=== PATIENT | female | born 1945 | race Caucasian/White ===

== ENCOUNTER 2018-12-22 10:26 | Emergency (ER) | payer MEDICARE, OTHER, SELFPAY ==
[2018-12-22 10:27] VITALS: BP 166/96; PULSE 70; RESP 18; TEMP 36.3; O2SAT 99; BMI 37.8
--- NOTE | 2018-12-22 11:02 | RAD_ITS ---
STUDY: X-RAY - PELVIS AND RIGHT HIP REASON FOR EXAM: Female, 73 years old. Fall TECHNIQUE: 3 views of the pelvis and right hip. COMPARISON: None. FINDINGS: There is no fracture or dislocation in the pelvis or right hip. There are moderate degenerative changes in the right hip. RAD/HIP, UNI W/ Pelvis 2-3 Views IMPRESSION: No fracture or dislocation the pelvis or right hip. Moderate degenerative change. Electronically Signed: Pasquale Minor, at 11:54 EDT Tel , Service support ,
--- NOTE | 2018-12-22 11:02 | RAD_ITS ---
STUDY: X-RAY - LUMBAR SPINE REASON FOR EXAM: Female, 73 years old. Fall TECHNIQUE: 3 view(s) of the lumbar spine were obtained. COMPARISON: None FINDINGS: There is no evidence of fracture or dislocation in the lumbar spine. The vertebral body heights are well-maintained. There are mild multilevel degenerative changes with disc space narrowing, facet hypertrophy and small osteophytes. RAD/Lumbar Spine 2 or 3 Views IMPRESSION: No fracture or dislocation in the lumbar spine. Mild degenerative change. Electronically Signed: Pasquale Minor, at 11:51 EDT Tel , Service support ,
--- NOTE | 2018-12-22 12:24 | ED.DCSUM_ITS ---
- ER Visit Summary Date of Service: 12/22/18 Chief Complaint: Fall History of Present Illness: The patient is a 73 F who fell from a ladder yesterday while cleaning her windows. She states was a 4 foot ladder and she is on her way down when the ladder shifted and she fell landing on her right side. She states she initially had a headache that is completely resolved. She had no vision change, nausea, vomiting. She is a planing of pain to the right lower back and right hip area. She did note some improvement with ibuprofen this morning. Physical Examination: Blood pressure is 166/96, otherwise vitals normal. Patient sitting upright in bed no acute distress. Head and neck examination unremarkable. No C-spine tenderness noted. Heart is regular rate and rhythm. Lung sounds are clear. Abdomen is soft and nontender. Back examination was tenderness in the right lumbar paraspinal muscles. Is mild tenderness in the right posterior hip. She has full range of motion of the lower extremities. No ecchymosis or abrasions are noted. Test Results: L-spine and right hip/pelvis x-rays are obtained and reveal no fracture. Emergency Department Course and Treatment: Patient will continue to use ibuprofen or Tylenol. She will be written a short course of Stewart for breakthrough pain if needed. Treatment Plan: [] Disposition: Discharge Impression: 1. Fall with right hip contusion This note was generated with Smartaxi dictation software. It may contain incorrect words, spelling, and punctuation that were not noted in review of the chart prior to signing ED Disposition - Plan for ED Patient: Disposition: Home or Assisted Living Instructions: ED Mechanical Fall, ED Contusion Hip Prescriptions: Hydrocodone Bitart/Apap 5-325 [Stewart 5MG-325MG] 1 tablet PO Q6H PRN PRN 3 Days #10 tablet PRN Reason: Pain Referrals: Karen Shoemaker MD [Primary Care Provider] - 1 Week if not improving
[2018-12-22 12:37] VITALS: RESP 18
== END 2018-12-22 12:40 | disposition home or self-care (01) ==
PROVIDERS: Emergency Provider Emergency Medicine; Family Provider Internal Medicine; PCP Internal Medicine
DX: S70.01XA Contusion of right hip, initial encounter (principal); M54.5 Low back pain; W11.XXXA Fall on and from ladder, initial encounter; Y93.E9 Activity, other interior property and clothing maintenance; Y92.9 Unspecified place or not applicable; Y99.9 Unspecified external cause status; I10 Essential (primary) hypertension
CPT/HCPCS: 72100; 73502; 99283

== ENCOUNTER 2020-09-14 17:39 | Outpatient (RCR) | payer MEDICARE, SELFPAY | END 2020-09-14 23:59 | LOC: IMMUN 17:39 | PROVIDERS: PCP Internal Medicine; Visit Provider Family Medicine | DX: Z23 Encounter for immunization (principal) | CPT/HCPCS: 0011A ==

== ENCOUNTER 2021-08-16 06:57 | Day surgery (SDC) | payer MEDICARE, SELFPAY ==
--- NOTE | 2021-08-16 07:28 | H&P.OPEN ---
HPI - General HPI Narrative MICKEY POON, is a 75 F who presents [facility] Medical History (Updated 08/13/21 @ 12:38 by Yesenia Bean) CPAP (continuous positive airway pressure) dependence Diabetes Easy bruising Excessive bleeding High cholesterol History of ingrown nail History of steroid therapy Hypertension Post-menopausal Sleep apnea Wears glasses Home Medications Lactobacillus acidophilus [Probiotic] 10,000 mmu cells PO DAILY 08/13/21 [History Last Taken Unknown] aspirin 81 mg PO DAILY 08/13/21 [History Last Taken Unknown] atenolol 25 mg PO BID 08/13/21 [History Last Taken Unknown] biotin 1 mg PO DAILY 08/13/21 [History Last Taken Unknown] calcium carbonate [Calcium 500] 500 mg PO DAILY 08/13/21 [History Last Taken Unknown] cholecalciferol (vitamin D3) [Vitamin D3] 25 mcg PO DAILY 08/13/21 [History Last Taken Unknown] elderberry fruit [Elderberry] 200 mg PO DAILY 08/13/21 [History Last Taken Unknown] milfnbaf-oqtsz-rqc8-C-arcadio-bor [Tpfmqjbsktz-Afezl-WHA Complex] 1 tab PO DAILY 08/13/21 [History Last Taken Unknown] hydrochlorothiazide 50 mg PO DAILY 08/13/21 [History Last Taken Unknown] metformin 500 mg PO BID 08/13/21 [History Last Taken Unknown] nortriptyline 20 mg PO QHS 08/13/21 [History Last Taken Unknown] oxybutynin chloride 5 mg PO DAILY 08/13/21 [History Last Taken Unknown] rosuvastatin 2.5 mg PO QHS 08/13/21 [History Last Taken Unknown] turmeric 400 mg PO DAILY 08/13/21 [History Last Taken Unknown] vitamin B complex 1 cap PO DAILY 08/13/21 [History Last Taken Unknown] zinc 50 mg PO DAILY 08/13/21 [History Last Taken Unknown] Allergy/AdvReac Type Severity Reaction Status Date / Time amoxicillin [From Augmentin] Allergy Rash Verified 08/13/21 12:25 clavulanic acid Allergy Rash Verified 08/13/21 12:25 [From Augmentin] ezetimibe [From Zetia] Allergy Other Verified 08/13/21 12:25 lisinopril Allergy Other Verified 08/13/21 12:25 Penicillins Allergy Hives Verified 08/13/21 12:22 pravastatin Allergy Other Verified 08/13/21 12:25 red yeast rice Allergy Other Verified 08/13/21 12:25 simvastatin [From Zocor] Allergy Other Verified 08/13/21 12:25 Surgical History (Updated 08/13/21 @ 12:38 by Yesenia Bean) History of carpal tunnel release of both wrists Hx laparoscopic cholecystectomy Hx of arthroscopic knee surgery Hx of colonoscopy Hx of dilation and curettage Hx of hysterectomy Hx of lumpectomy Hx of vein stripping Social History Smoking Status: Never smoker Past Medical/Surgical History Planned Operation Planned Operative Procedure/s: COLON Previous Hospitalizations/Surgeries HX Hospitalizations: No Any Problems With Anesthesia: No You/Your Family Experience Fever (Hyperthermia) With Anes: No Cholinesterase deficiency: No Cardiovascular Hx of Irregular Heartbeat and/or Afib: No Hx Heart Attack: No Hx Congestive Heart Failure: No Hx Hypertension: Yes (CONTROLLED ON MED) Hx Pacemaker: No Respiratory Hx Chronic Obstructive Pulmonary Disease (COPD): No Hx Asthma: No Hx Emphysema: No Hx Sleep Apnea: Yes CPAP: Yes BIPAP: No Hx Respiratory Tract Infection/Cold (presently): No Result (for STOP score): Positive Smoking Status: Never smoker Gastrointestinal Hx Gastroesophageal Reflux: No Hx Ulcer: No Neurological Hx Seizures: No Hx Head/Neck Injury: No Hx Headaches: Yes Hx Back Injury/Pain: No Does patient have nerve stimulator: No Allergies amoxicillin [From Augmentin] Allergy (Verified 08/13/21 12:25) Rash clavulanic acid [From Augmentin] Allergy (Verified 08/13/21 12:25) Rash ezetimibe [From Zetia] Allergy (Verified 08/13/21 12:25) Other MUSCLE ACHES lisinopril Allergy (Verified 08/13/21 12:25) Other COUGH Penicillins Allergy (Verified 08/13/21 12:22) Hives pravastatin Allergy (Verified 08/13/21 12:25) Other red yeast rice Allergy (Verified 08/13/21 12:25) Other simvastatin [From Zocor] Allergy (Verified 08/13/21 12:25) Other MUSCLE ACHES Discharge Is Pt Admitted From a Retirement, or a Usp: No After D/C, Where Do you Plan to Go: Return Home Surgery Risks - Colonoscopy Risks Include but are not Limited To: Risks include but are not limited to: Bleeding, perforation requiring further surgery, inability to complete colonoscopy requiring barium enema.
--- NOTE | 2021-08-16 07:31 | H&P.OPEN ---
HPI - General HPI Narrative MICKEY POON, is a 75 F who presents for screening colonoscopy. Patient's last colonoscopy was by Dr. Villela in May 2016 he did find 1 polyp per patient which was benign. Patient denies any family history of colon cancer. Patient's bowel movements daily denies any blood?does admit to hemorrhoids. Patient denies any chronic abdominal pain/nausea/vomiting/reflux. [facility] Medical History (Updated 08/16/21 @ 07:[address] Ashley Riddle MD) CPAP (continuous positive airway pressure) dependence Diabetes Easy bruising Excessive bleeding High cholesterol History of ingrown nail History of steroid therapy Hypertension Post-menopausal Sleep apnea Wears glasses Home Medications Lactobacillus acidophilus [Probiotic] 10,000 mmu cells PO DAILY 08/13/21 [History Last Taken Unknown] aspirin 81 mg PO DAILY 08/13/21 [History Last Taken Unknown] atenolol 25 mg PO BID 08/13/21 [History Last Taken Unknown] biotin 1 mg PO DAILY 08/13/21 [History Last Taken Unknown] calcium carbonate [Calcium 500] 500 mg PO DAILY 08/13/21 [History Last Taken Unknown] cholecalciferol (vitamin D3) [Vitamin D3] 25 mcg PO DAILY 08/13/21 [History Last Taken Unknown] elderberry fruit [Elderberry] 200 mg PO DAILY 08/13/21 [History Last Taken Unknown] ieyjemjs-jzzst-fte8-C-arcadio-bor [Jauovacxvsq-Dnuya-WSF Complex] 1 tab PO DAILY 08/13/21 [History Last Taken Unknown] hydrochlorothiazide 50 mg PO DAILY 08/13/21 [History Last Taken Unknown] metformin 500 mg PO BID 08/13/21 [History Last Taken Unknown] nortriptyline 20 mg PO QHS 08/13/21 [History Last Taken Unknown] oxybutynin chloride 5 mg PO DAILY 08/13/21 [History Last Taken Unknown] rosuvastatin 2.5 mg PO QHS 08/13/21 [History Last Taken Unknown] turmeric 400 mg PO DAILY 08/13/21 [History Last Taken Unknown] vitamin B complex 1 cap PO DAILY 08/13/21 [History Last Taken Unknown] zinc 50 mg PO DAILY 08/13/21 [History Last Taken Unknown] Allergy/AdvReac Type Severity Reaction Status Date / Time amoxicillin [From Augmentin] Allergy Rash Verified 08/16/21 07:30 clavulanic acid Allergy Rash Verified 08/16/21 07:30 [From Augmentin] ezetimibe [From Zetia] Allergy Other Verified 08/16/21 07:30 lisinopril Allergy Other Verified 08/16/21 07:30 Penicillins Allergy Hives Verified 08/16/21 07:30 pravastatin Allergy Other Verified 08/16/21 07:30 red yeast rice Allergy Other Verified 08/16/21 07:30 simvastatin [From Zocor] Allergy Other Verified 08/16/21 07:30 Surgical History (Updated 08/13/21 @ 12:38 by Yesenia Bean) History of carpal tunnel release of both wrists Hx laparoscopic cholecystectomy Hx of arthroscopic knee surgery Hx of colonoscopy Hx of dilation and curettage Hx of hysterectomy Hx of lumpectomy Hx of vein stripping Social History Smoking Status: Never smoker Past Medical/Surgical History Planned Operation Planned Operative Procedure/s: COLON Previous Hospitalizations/Surgeries HX Hospitalizations: No Any Problems With Anesthesia: No You/Your Family Experience Fever (Hyperthermia) With Anes: No Cholinesterase deficiency: No Cardiovascular Hx of Irregular Heartbeat and/or Afib: No Hx Heart Attack: No Hx Congestive Heart Failure: No Hx Hypertension: Yes (CONTROLLED ON MED) Hx Pacemaker: No Respiratory Hx Chronic Obstructive Pulmonary Disease (COPD): No Hx Asthma: No Hx Emphysema: No Hx Sleep Apnea: Yes CPAP: Yes BIPAP: No Hx Respiratory Tract Infection/Cold (presently): No Result (for STOP score): Positive Smoking Status: Never smoker Gastrointestinal Hx Gastroesophageal Reflux: No Hx Ulcer: No Neurological Hx Seizures: No Hx Head/Neck Injury: No Hx Headaches: Yes Hx Back Injury/Pain: No Does patient have nerve stimulator: No Allergies amoxicillin [From Augmentin] Allergy (Verified 08/16/21 07:30) Rash clavulanic acid [From Augmentin] Allergy (Verified 08/16/21 07:30) Rash ezetimibe [From Zetia] Allergy (Verified 08/16/21 07:30) Other MUSCLE ACHES lisinopril Allergy (Verified 08/16/21 07:30) Other COUGH Penicillins Allergy (Verified 08/16/21 07:30) Hives pravastatin Allergy (Verified 08/16/21 07:30) Other red yeast rice Allergy (Verified 08/16/21 07:30) Other simvastatin [From Zocor] Allergy (Verified 08/16/21 07:30) Other MUSCLE ACHES Discharge Is Pt Admitted From a Skilled Nursing, or a Fdc: No After D/C, Where Do you Plan to Go: Return Home Physical Exam Const alert, oriented x3 and no apparent distress HEENT normocephalic and head/scalp atraumatic Resp normal respiratory effort Cardio regular rate GI soft to palpation and non-tender; Negative for non-distended Palpation: Negative for guarding Extremity no clubbing, cyanosis or edema Neuro CN's II-XII intact bilaterally Psych mental status grossly normal Assessment & Plan Assessment/Plan (1) Hx of colonic polyp: Procedure Criteria Type of Procedure Procedure Type: Elective Elective Risks - COVID COVID Risk Discussion: The surgeon/proceduralist and patient have discussed in detail the risk of exposure to and/or potential harm posed by the COVID-19 virus with having a surgery/procedure at this time versus the risk of delaying the surgery/procedure. It is not possible to know either the risk of delaying the surgery or procedure or chance of getting an infection with perfect accuracy, but a joint decision was made between the patient and the surgeon/proceduralist to proceed at this time with the scheduled surgery/procedure as indicated on the consent form. Surgery Risks - Colonoscopy Risks Include but are not Limited To: Risks include but are not limited to: Bleeding, perforation requiring further surgery, inability to complete colonoscopy requiring barium enema. Patient no further questions this time.
[2021-08-16 07:32] VITALS: BP 152/88; PULSE 90; RESP 16; TEMP 35.8; O2SAT 99; BMI 33.8
[2021-08-16] MEDS: Lactated Ringers 1,000 ML 15 ML IV (07:39)
[2021-08-16 07:56] LABS: Bedside Glucose 167 mg/dL (70-110)
--- NOTE | 2021-08-16 08:00 | COLBX_PTH ---
PATIENT: MICKEY POON LOC: EN U#:[id number] AGE/SX: 75/F ROOM: RE08/16/[address]: Dr. Ashley Riddle MD : 1945 BED: DIS: 08/16/2021 SPEC #: [id number] RECD: 08/16/21 14:12 STATUS: RAVINDER REEsequiel #: [id number] ROSARIO: 08/16/21 08:[address]: Ashley Riddle DEPT: SURGICAL PATHOLOGY RECD BY: Carey Lynch ENTERED: 08/17/21 09:43 SP TYPE: COLON BX OTHR DR: Dr. Karen Shoemaker MD Tissues: Rectum, NOS Procedures: Surgery Specimen Level IV HEADER OPERATION: Colonoscopy (MAC) PRE-OP DIAGNOSIS: History of colonic polyp TISSUE SUBMITTED: Rectum biopsy MICROSCOPIC DIAGNOSIS Rectal polyp, biopsy: Fragments of hyperplastic polyp. AM:ronan 08/18/2021 MICROSCOPIC DESCRIPTION Slides are reviewed. GROSS DESCRIPTION Received in fixative is one container labeled with the patient's name and designated rectum biopsy. The specimen consists of multiple irregular fragments of light pinzon soft tissue that in aggregate measure 2 x 0.5 x 0.1 cm. The specimen is totally submitted in one cassette. / AM:ronan 08/17/2021 TC:5 CPT: 63249
[2021-08-16 09:18] VITALS: BP 127/75; BP 152/88; PULSE 69; RESP 16; TEMP 36.7; O2SAT 96
--- NOTE | 2021-08-16 09:19 | OP.COLON_ITS ---
Patient Name: Leticia Adler Procedure Date: 08/16/2021 8:26 AM Date of : 1945 Age: 75 Procedure: Colonoscopy Indications: High risk colon cancer surveillance: Personal history of colonic polyps Providers: Ashley Riddle MD Medicines: Monitored Anesthesia Care Patient Profile: This is a 75 year old female. Last Colonoscopy: May 2016. Complications: No immediate complications. Procedure: Pre-Anesthesia Assessment: - Prior to the procedure, a History and Physical was performed, and patient medications and allergies were reviewed. The patient's tolerance of previous anesthesia was also reviewed. The risks and benefits of the procedure and the sedation options and risks were discussed with the patient. All questions were answered, and informed consent was obtained. Prior Anticoagulants: The patient has taken no previous anticoagulant or antiplatelet agents. ASA Grade Assessment: Per anesthesia. After reviewing the risks and benefits, the patient was deemed in satisfactory condition to undergo the procedure. After I obtained informed consent, the scope was passed under direct vision. Throughout the procedure, the patient's blood pressure, pulse, and oxygen saturations were monitored continuously. The Colonoscope was introduced through the anus and advanced to the cecum, identified by the appendiceal orifice, ileocecal valve and palpation. The colonoscopy was somewhat difficult due to a tortuous colon. The patient tolerated the procedure well. The quality of the bowel preparation was good. Scope In: 8:33:16 AM Scope Withdrawal Time 0 hours 17 minutes 17 seconds Scope Out: 9:11:46 AM Total Procedure Duration Time 0 hours 38 minutes 30 seconds Findings: Skin tags were found on perianal exam. A few small-mouthed diverticula were found in the sigmoid colon. Multiple sessile polyps were found in the rectum. The polyps were less than 5 mm in size. These polyps were removed with a cold biopsy forceps. Resection and retrieval were complete. The entire examined colon appeared normal on direct and retroflexion views. Impression: - Perianal skin tags found on perianal exam. - Diverticulosis in the sigmoid colon. - Multiple less than 5 mm polyps in the rectum, removed with a cold biopsy forceps. Resected and retrieved. - The entire examined colon is normal on direct and retroflexion views. Recommendation: - Discharge patient to home. - Resume previous diet. - Continue present medications. - Await pathology results. - Repeat colonoscopy in 5 years for surveillance based on pathology results. Procedure Code(s): --- Professional --- 29613, Colonoscopy, flexible; with biopsy, single or multiple Diagnosis Code(s): --- Professional --- Z86.010, Personal history of colonic polyps K62.1, Rectal polyp K64.4, Residual hemorrhoidal skin tags K57.30, Diverticulosis of large intestine without perforation or abscess without bleeding CPT copyright 2017 [employer]. All rights reserved. The codes documented in this report are preliminary and upon boat motor mechanic review may be revised to meet current compliance requirements. MD Ashley Lopez MD 08/16/2021 9:19:09 AM This report has been signed electronically. Number of Addenda: 0 Note Initiated On: 08/16/2021 8:26 AM
--- NOTE | 2021-08-16 09:20 | OP.CCLET_ITS ---
08/16/2021 Karen Shoemaker [address] [place] [address] Re : Colonoscopy procedure for Leticia Adler Dear Dr. Shoemaker This procedure was performed on Monday, August 16, 2021. My impressions and recommendations are as follows: Impressions : - Perianal skin tags found on perianal exam. - Diverticulosis in the sigmoid colon. - Multiple less than 5 mm polyps in the rectum, removed with a cold biopsy forceps. Resected and retrieved. - The entire examined colon is normal on direct and retroflexion views. Recommendations : - Discharge patient to home. - Resume previous diet. - Continue present medications. - Await pathology results. - Repeat colonoscopy in 5 years for surveillance based on pathology results. My findings are described in the full procedure note, which is enclosed. If I can be of further assistance, please feel free to contact me at Doctor phone number(s): , Work: . Sincerely, MD Ashley Lopez MD 08/16/2021 9:19:09 AM This report has been signed electronically.
[2021-08-16 09:23] VITALS: BP 124/74; BP 152/88; PULSE 68; RESP 16; O2SAT 98
[2021-08-16 09:28] VITALS: BP 127/75; BP 152/88; PULSE 58; RESP 16; O2SAT 98
[2021-08-16 09:33] VITALS: BP 118/72; BP 152/88; PULSE 57; RESP 16; TEMP 36.6; O2SAT 98
[2021-08-16 09:58] VITALS: BP 152/88
== END 2021-08-16 23:59 | disposition home or self-care (01) ==
LOC: EN 06:59 → AC 07:01
PROVIDERS: PCP Internal Medicine; Referring Provider Internal Medicine; Visit Provider Surgery
PROC: 0DJD8ZZ Inspection of Lower Intestinal Tract, Via Natural or Artificial Opening Endoscopic (ICD-10-PCS; CPT 45378; principal; 2021-08-16 07:55)
DX: Z12.11 Encounter for screening for malignant neoplasm of colon (principal); E11.9 Type 2 diabetes mellitus without complications; K57.30 Diverticulosis of large intestine without perforation or abscess without bleeding; Z90.49 Acquired absence of other specified parts of digestive tract; K64.4 Residual hemorrhoidal skin tags; I10 Essential (primary) hypertension; E78.00 Pure hypercholesterolemia, unspecified; Z79.82 Long term (current) use of aspirin; Z86.010 Personal history of colon polyps; K62.1 Rectal polyp; Z78.0 Asymptomatic menopausal state; G47.00 Insomnia, unspecified; Z79.899 Other long term (current) drug therapy; Z79.84 Long term (current) use of oral hypoglycemic drugs
CPT/HCPCS: 45380; 82962; 87426; 88305; J7120; J2405

== ENCOUNTER → 2024-07-01 | Outpatient (CLI) | payer MEDICARE, SELFPAY ==
--- NOTE | 2024-07-01 15:13 | US_ITS ---
STUDY: RENAL ULTRASOUND - COMPLETE REASON FOR EXAM: Female, 78 years old. UTI TECHNIQUE: Ultrasound evaluation of the kidneys was performed with real-time and static arora-scale imaging. COMPARISON: None. FINDINGS: RIGHT KIDNEY: Normal location of the right kidney, which is normal in size. The right kidney measures 11.4 cm x 5.3 cm x 5.4 cm. There is a normal cortex of the right kidney. The renal cortex measures 1.5 cm. There is an 8 mm x 8 mm x 6 mm cyst in the upper pole of the right kidney. There are no right renal calculi. There is no right hydronephrosis. DISTAL RIGHT URETER: There is non-visualization of the distal right ureter. There is no demonstrated right ureterovesical junction calculus. There is a visualized right ureteral jet. LEFT KIDNEY: Normal location of the left kidney, which is normal in size. The left kidney measures 11.6 cm x 5.1 cm x 6.3 cm. There is a normal cortex of the left kidney. The renal cortex measures 1.6 cm. There is a 1.1 cm x 1 cm x 0.8 cm cyst in the mid lateral aspect of the kidney. There is also evidence of a 4 mm x 5 mm x 3 mm nonobstructive left intrarenal calculus. There are no left renal calculi. There is no left hydronephrosis. DISTAL LEFT URETER: There is non-visualization of the distal left ureter. There is no demonstrated left ureterovesical junction calculus. There is a visualized left ureteral jet. BLADDER: The distended urinary bladder has a volume of 217.5 ml. The empty urinary bladder has a volume of 73.2 ml. There is a normal wall thickness of the distended urinary bladder. There is no demonstrated mass within the urinary bladder. There are no demonstrated bladder calculi. US/Kidney and Bladder IMPRESSION: Small bilateral renal cysts. 4 mm x 5 mm x 3 mm nonobstructive calculus in the left kidney. Electronically Signed: Elian Padron MD at 12:36 EST ,
== END | disposition home or self-care (01) ==
LOC: US 15:12
PROVIDERS: PCP Internal Medicine; Referring Provider Urology; Visit Provider Urology
DX: N39.0 Urinary tract infection, site not specified (principal)
CPT/HCPCS: 76770

== ENCOUNTER 2025-05-07 12:56 | Emergency (ER) | payer MEDICARE, SELFPAY ==
[2025-05-07] VITALS (7 sets, daily range): BP systolic 136–183; BP diastolic 57–117; PULSE 64–89; RESP 13–21; TEMP 36.8; O2SAT 93–100; BMI 32.1
--- NOTE | 2025-05-07 13:10 | EKG12_ITS ---
Test Reason : GENERAL Blood Pressure : */* mmHG Vent. Rate : 60 BPM Atrial Rate : 60 BPM P-R Int : 162 ms QRS Dur : 98 ms QT Int : 424 ms P-R-T Axes : 8 37 53 degrees QTcB Int : 424 ms Sinus rhythm with marked sinus arrhythmia Otherwise normal ECG Confirmed by Enzo Doran ([id number]), brands editor WINSTON MAY ([id number]) on 05/08/2025 9:37:03 AM Referred By: Confirmed By: Enzo Doran
--- NOTE | 2025-05-07 13:11 | RAD_ITS ---
PROCEDURE: CHEST PA AND LATERAL 05/07/2025 REASON FOR EXAM: CHEST PAIN TECHNIQUE: Procedure Code: RADCXR Modality: DX Procedure: CHEST PA AND LATERAL COMPARISON: None. RAD/Chest PA and Lateral IMPRESSION: Right upper quadrant abdominal surgical clips are seen. Lungs appear clear. No pleural effusion or pneumothorax is noted. The cardiomediastinal silhouette is remarkable for a partially calcified aorta. No evidence of cardiomegaly. Mild thoracic spine degenerative changes are seen, along with extensive DISH. No acute osseous change is seen. Reading Location: [id number]
--- NOTE | 2025-05-07 13:11 | ED.VIS.GI ---
HPI HPI - GI History of Present Illness Chief Complaint: Abd Pain Narrative Narrative: Patient is a 79-year-old female presenting to the emergency department for a burning sensation in her chest after eating. Patient states that for the past few months she has intermittently had difficulty swallowing her food. States it is not occurring every day. States that she is never had an EGD done. She states today she was eating stirfry in the cafeteria when she felt like there was a burning sensation in her mid sternum. She states she threw up a small amount of stirfry and saliva. She is able to tolerate her secretions. She has been able to drink since. States she is unsure if the symptoms occur with both fluids and food. No difficulty breathing, shortness of breath. States that she walked over to Dr. Du's office and the airline lounge receptionist told her to come here to be evaluated. Denies any abdominal pain. [facility] Medical History Wears glasses Post-menopausal History of steroid therapy Diabetes High cholesterol Easy bruising Excessive bleeding CPAP (continuous positive airway pressure) dependence Sleep apnea Hypertension History of ingrown nail Home Medications Medication Instructions Recorded Last Taken Type Lactobacillus acidophilus 10 10,000 mmu cells PO DAILY 08/13/21 Unknown History billion cell capsule (Probiotic) aspirin 81 mg capsule 81 mg PO DAILY 08/13/21 Unknown History atenolol 25 mg tablet 25 mg PO BID 08/13/21 08/16/21 History 25 mg biotin 500 mcg capsule 1 mg PO DAILY 08/13/21 Unknown History calcium carbonate 500 mg PO DAILY 08/13/21 Unknown History cholecalciferol (vitamin D3) 25 25 mcg PO DAILY 08/13/21 Unknown History mcg (1,000 unit) chewable tablet (Vitamin D3) elderberry fruit 200 mg capsule 200 mg PO DAILY 08/13/21 Unknown History glucosamine 375 ic-wusifstzb-lii 1 tab PO DAILY 08/13/21 Unknown History no1 500 mg-C 15 mg-arcadio 0.5 mg tablet (Eelqrhjiddc-Zamiwoqmktv-HJY Complex) hydrochlorothiazide 50 mg tablet 50 mg PO DAILY 08/13/21 Unknown History metformin 500 mg tablet,extended 500 mg PO BID 08/13/21 Unknown History release 24 hr nortriptyline 10 mg capsule 20 mg PO QHS 08/13/21 Unknown History oxybutynin chloride 5 mg tablet 5 mg PO DAILY 08/13/21 Unknown History rosuvastatin 5 mg tablet 2.5 mg PO QHS 08/13/21 Unknown History turmeric 400 mg capsule 400 mg PO DAILY 08/13/21 Unknown History vitamin B complex 1 cap PO DAILY 08/13/21 Unknown History zinc 50 mg tablet 50 mg PO DAILY 08/13/21 Unknown History Allergy/AdvReac Type Severity Reaction Status Date / Time amoxicillin (From Augmentin) Allergy Rash Verified 05/07/25 12:59 clavulanic acid (From Allergy Rash Verified 05/07/25 12:59 Augmentin) ezetimibe (From Zetia) Allergy Other Verified 05/07/25 12:59 lisinopril Allergy Other Verified 05/07/25 12:59 Penicillins Allergy Hives Verified 05/07/25 12:59 pravastatin Allergy Other Verified 05/07/25 12:59 red yeast rice Allergy Other Verified 05/07/25 12:59 simvastatin (From Zocor) Allergy Other Verified 05/07/25 12:59 Surgical History Hx of vein stripping Hx of colonoscopy History of carpal tunnel release of both wrists Hx of hysterectomy Hx laparoscopic cholecystectomy Hx of arthroscopic knee surgery Hx of lumpectomy Hx of dilation and curettage Social History Smoking Status: Never smoker ROS ROS ED ROS Narrative see HPI EXAM Physical Exam Narrative Exam Narrative: Vital signs: Reviewed General: Alert and orientedx3. No acute distress HEENT: Head is normocephalic and atraumatic, sinuses nontender, pupils equal round and reactive. Nares are patent. Oropharynx and throat exams normal. Tolerating secretions. Neck: Supple without lymphadenopathy nontender Cardiovascular: Regular rate and rhythm, no murmurs. No rubs or gallops. Normal S1 and S2 Respiratory: Clear to auscultation bilaterally. No wheezes, rales, rhonchi Abdominal: Soft and nontender. Normal bowel sounds. No guarding or rebound. Nonsurgical abdomen Extremities: No tenderness. No bruising. Normal range of motion. Normal sensation. Skin: No rash or redness. The rest of the physical exam is unremarkable Const Vital Signs: 05/07/25 12:57 10/22/25 13:26 05/07/25 13:31 Temperature 98.2 F Temperature Source Oral Pulse Rate 84 89 Respiratory Rate 16 19 H Respiratory Effort Normal Non-Labored Blood Pressure 183/95 H 149/117 H Blood Pressure Mean 124 127 Pulse Ox 100 98 Oxygen Delivery Method Room Air Room Air 05/07/25 13:36 05/07/25 14:56 05/07/25 15:00 Temperature Temperature Source Pulse Rate 70 77 64 Respiratory Rate 14 18 14 Respiratory Effort Blood Pressure 158/107 H 150/79 H 136/57 H Blood Pressure Mean 124 101 83 Pulse Ox 99 100 99 Oxygen Delivery Method Room Air Room Air Room Air 05/07/25 15:00 05/07/25 16:03 05/07/25 16:15 Temperature 98.2 F Temperature Source Pulse Rate 71 81 78 Respiratory Rate 16 21 H 13 Respiratory Effort Blood Pressure 136/57 H 155/76 H 148/76 H Blood Pressure Mean 81 98 100 Pulse Ox 99 93 100 Oxygen Delivery Method Room Air Room Air MDM MDM MDM Narrative Medical decision making narrative: Patient is a 79-year-old female presenting to the emergency department for a burning sensation in her chest after eating. Patient was seen and examined. Vitals are stable. Patient resting bed comfortably no acute distress. She is tolerating her secretions. Denies any shortness of breath. Has been able to drink since. She states it does not feel like there is anything stuck at this time. Given the patient's complaints of midsternal pain we will obtain a ACS workup, although patient does have a reason for the chest pain with stirfry and feeling a globus sensation in her chest. Symptoms are resolved now. she has no abdominal pain or continued vomiting. I do not think she needs a CT of her abdomen at this time. Given the patient has been having symptoms on and off for the past few months it sounds to be related to possible achalasia or other stricture type esophageal disease. Will speak with Dr. Du after ACS workup is back for follow up outpatient. EKG shows sinus rhythm with a sinus arrhythmia. No ischemic changes noted. CBC with no leukocytosis and a normal hemoglobin. BMP with no significant normalities. Initial troponin 11, slightly up trended to 16. Patient was able to tolerate a glass of water here without having to spit anything back up. I did speak with Dr. Du, to have the patient followed closely outpatient for EGD and he is agreeable. I reiterated this to patient that she should call tomorrow morning to follow-up with soon as possible. If she develops any symptoms at home with feeling a globus sensation in her chest, difficulty tolerating secretions, poor p.o. she needs return to the emergency department immediately. Given the patient's slight uptrending in troponins I did speak with cardiology, Dr. Doran, and explained that I do not think this is ACS related given the patient was eating stirfry and developed the sensation. He is in agreement, agrees the EKG is unremarkable for ACS and agrees with not obtaining a third troponin at this time. Patient stable for discharge. Patient discharged from the Emergency Department. I do not feel that the patient's evaluation reveals any acute reason for admission at this time. I instructed them to either follow-up with their primary care physician or promptly return to the Emergency Department for reevaluation should symptoms worsen or new symptoms develop. I explained what symptoms would indicate the need to return to the emergency department. Shared decision making was used. The patient voiced understanding of the treatment plan and is agreeable with it. Clinical impression Food bolus, resolved History & Record Review Discussion w/independent historian: Patient Lab Data Attestation: I reviewed the patient's lab results. Labs: Laboratory Results - last 24 hr 05/07/25 05/07/25 13:26 15:20 WBC 6.9 RBC 4.34 Hgb 13.1 Hct 38.3 MCV 88.2 MCH 30.2 MCHC 34.2 RDW Std Deviation 37.6 RDW Coeff of Daniel 11.8 Plt Count 194 MPV 11.0 Immature Gran % (Auto) 0.100 Neut % (Auto) 51.4 Lymph % (Auto) 38.3 [place] % (Auto) 7.8 Eos % (Auto) 1.5 Baso % (Auto) 0.9 Absolute Neuts (auto) 3.5 Absolute Lymphs (auto) 2.64 Nucleated RBC % 0 Sodium 135 Potassium 3.7 Chloride 96 L Carbon Dioxide 27.4 Anion Gap 12 BUN 13 Creatinine 0.82 Estim Creat Clear Calc 65.09 Est GFR (MDRD) Non-Af 74 BUN/Creatinine Ratio 16.2 Glucose 150 H Calcium 9.5 Troponin T High Sens 11 Troponin T Hi Sens 2 Hr 16 H Radiography Chest X-Ray - ED: 2 View, Read by ED Physician, Normal, No Acute Disease and No Infiltrates Diagnostic Testing: Clinical Impression(s) from Imaging Studies Chest X-Ray 05/07/25 13:11 IMPRESSION: Right upper quadrant abdominal surgical clips are seen. Lungs appear clear. No pleural effusion or pneumothorax is noted. The cardiomediastinal silhouette is remarkable for a partially calcified aorta. No evidence of cardiomegaly. Mild thoracic spine degenerative changes are seen, along with extensive DISH. No acute osseous change is seen. Reading Location: [address] Discharge Plan Triage Chief Complaint: Abd Pain ED Provider: Gail Powers Dx/Rx/DC Orders Clinical Impression: Chest pain, Esophageal abnormality Instructions: ED Esophageal Foreign Body, Resolved Prescriptions: No Action hydrochlorothiazide 50 mg tablet 50 mg PO DAILY atenolol 25 mg tablet 25 mg PO BID calcium carbonate [Calcium 500] 500 mg calcium (1,250 mg) Tablet 500 mg PO DAILY nortriptyline 10 mg capsule 20 mg PO QHS zinc 50 mg Tablet 50 mg PO DAILY oxybutynin chloride 5 mg tablet 5 mg PO DAILY metformin 500 mg tablet extended release 24 hr 500 mg PO BID vitamin B complex Capsule 1 cap PO DAILY biotin 500 mcg Capsule 1 mg PO DAILY Elderberry 200 mg Capsule 200 mg PO DAILY rosuvastatin 5 mg tablet 2.5 mg PO QHS cholecalciferol (vitamin D3) [Vitamin D3] 25 mcg (1,000 unit) Tablet,Chewable 25 mcg PO DAILY Elvjpootram-Aedmt-OBN Complex [id number] mg Tablet 1 tab PO DAILY Probiotic 10 billion cell Capsule 10,000 mmu cells PO DAILY turmeric 400 mg Capsule 400 mg PO DAILY aspirin 81 mg Capsule 81 mg PO DAILY Primary Care Provider: Karen Shoemaker Referrals: Karen Shoemaker MD [Primary Care Provider, Internal Medicine] Niels Du DO [Med Staff - Active Staff, Gastroenterology] - As soon as possible Activity Restrictions/Additional Instructions: You need to call Dr. Du today for an appointment as soon as possible for outpatient EGD. If you develop another episode and cannot tolerate food or liquids you need to return to the emergency department immediately. Your evaluation in the Emergency Department did not reveal any acute reason for admission. However, I want to emphasize that you may be early in the course of a disease process or illness even if it is not present. For this reason you should follow-up within 24 hours for reevaluation with either your primary care physician or if necessary back here in the Emergency Department. You should return to the Emergency Department immediately if your symptoms worsen or new symptoms develop. Print Language: Icelandic Disposition Disposition: Home, Self Care Discharge Date/Time: 05/07/25 16:26
[2025-05-07 13:41] LABS: Hematocrit 38.3 % (37-47); Hemoglobin 13.1 g/dL (12.0-15.0); Immature Granulocytes Count 0.010 X10^3/uL (0.0-0.0); Mean Corp Hgb Conc 34.2 g/dL (32-36); Mean Corpuscular Volume 88.2 fL (81-99); Mean Platelet Vol. 11.0 fl (6.2-12.0); NRBC Flagged by Analyzer 0 % (0-5); Platelet Count 194 K/mm3 (150-450); RBC Distribution Width CV 11.8 % (11.6-14.6); RBC Distribution Width SD 37.6 fl (35.1-43.9); Red Blood Count 4.34 M/mm3 (4.2-5.4); White Blood Count 6.9 K/mm3 (4.4-11.0)
[2025-05-07 14:04] LABS: Anion Gap 12 (5-15); BUN 13 mg/dL (4-19); BUN/Creat Ratio 16.2 RATIO (10-20); Calcium,Total 9.5 mg/dL (7.6-11.0); Carbon Dioxide 27.4 mmol/L (21.0-32.0); Chloride 96 mmol/L (98-108); Estimated Creatinine Clearance 65.09 ml/min (50-250); Glucose 150 mg/dL (70-99); Potassium 3.7 mmol/L (3.3-5.1); Troponin T High Sensitivity 11 ng/L (<=14)
--- NOTE | 2025-05-07 15:12 | CM.ED ---
Social Work Reason for visit: Advanced Directives follow up SW met with patient and patients , introduced self, explained role in with [facility] and reason for visit. Patient accepting of visit and stated that both she and her are volunteers with [facility] and would have no problem bringing in a copy of their advanced directives. No further needs at this time. Yi Landeros, SHUTTLE VENEERING SUPERVISOR, CLINICAL RESEARCH TECH
[2025-05-07 15:58] LABS: Troponin T High Sens 2 HR 16 ng/L (<=14)
== END 2025-05-07 16:26 | disposition home or self-care (01) ==
PROVIDERS: Emergency Provider Student in an Organized Health Care Education/Training Program; PCP Internal Medicine; Visit Provider Student in an Organized Health Care Education/Training Program
DX: R07.9 Chest pain, unspecified (principal); E11.9 Type 2 diabetes mellitus without complications; K22.9 Disease of esophagus, unspecified; R10.9 Unspecified abdominal pain; I49.8 Other specified cardiac arrhythmias; I10 Essential (primary) hypertension; E78.00 Pure hypercholesterolemia, unspecified; Z79.82 Long term (current) use of aspirin; Z79.84 Long term (current) use of oral hypoglycemic drugs; Z79.899 Other long term (current) drug therapy
CPT/HCPCS: 71046; 80048; 84484; 85025; 93005; 99285

== ENCOUNTER 2025-05-12 08:17 | Day surgery (SDC) | payer MEDICARE, SELFPAY ==
--- NOTE | 2025-05-09 15:57 | PAT.ANE_ITS ---
Pre-Assessment Diagnosis/Proposed Procedure Planned Operative Procedure(s): EGD Anesthesia History Anesthesia History - medical equipment repairer: Anesthesia History - medical equipment repairer Hx Hospitalization No 05/09/25 10:34 Any Problems With Anesthesia No 05/09/25 10:34 Cholinesterase deficiency No 05/09/25 10:34 You/Your Family Experience No 05/09/25 10:34 fever (hyperthermia) with Relationship Recent Exposure to Contagious No 08/16/21 07:32 Disease Does patient have nerve No 05/09/25 10:34 stimulator Patient instructed to have device shut off --Does patient have Pacemaker or ICD? When Was Last Pacemaker Check QUESTION #4 FULL TEXT: You/Your Family Experience fever (hyperthermia) with Anesthesia Last Oral Intake Last Oral intake: Last Oral Intake NPO since Meds taken in AM with sips of water? Meds patient instructed to take am of surgery PONV PONV - medical equipment repairer: PONV - medical equipment repairer Female Yes 05/09/25 10:34 HX of Motion Sickness No 05/09/25 10:34 HX of N/V After Surgery No 05/09/25 10:34 Non-Smoker Yes 05/09/25 10:34 Duration of Surgery greater No 05/09/25 10:34 than 60 minutes Number of Risk Factors 2 05/09/25 10:34 PONV Score Moderate Risk 05/09/25 10:34 Height & Weight Height & Weight: Anesthesia: Height & Weight Height 5 ft 6 in 05/08/25 11:39 Respiratory Assessment Respiratory Assessment - medical equipment repairer: Respiratory Tract Infection Hx - medical equipment repairer Hx Respiratory Tract Infection No 05/09/25 10:34 STOP Sleep Apnea STOP Sleep Apnea - medical equipment repairer: STOP Sleep Apnea - medical equipment repairer Hx Hypertension Yes: CONTROLLED WITH MED 05/09/25 10:34 Hx Sleep Apnea Yes 05/09/25 10:34 CPAP Yes 05/09/25 10:34 BIPAP No 05/09/25 10:34 Do you snore loudly (louder than talking or can be heard Do you often feel tired/ fatigued/ sleepy during daytime? Has anyone observed you stop breathing during sleep? STOP Results Positive 05/09/25 10:34 QUESTION #5 FULL TEXT : Do you snore loudly (louder than talking or can be heard through closed doors)? Tobacco Use History Tobacco Use History - medical equipment repairer: Tobacco Use History - medical equipment repairer Tobacco Use Smoking Status Never smoker 05/09/25 10:34 Hx Tobacco Use No 05/09/25 10:34 Years Smoking Packs Smoked per Day Smoking Cessation Date was within the last 15 years Hx Smoking Cessation Date Hx Smoking Cessation Counseling Hematologic Medial History Hematologic Hx - medical equipment repairer: Hematologic Medical Hx - rn documentation Hx of Blood Transfusion No 05/09/25 10:34 Hx of Transfusion in last 3 No 05/09/25 10:34 Months Date of Last Transfusion (if within last 3 months) Ever experience any problems No 05/09/25 10:34 with transfusion(s)? Specify any problems Hx of Preganancy in last 3 No 05/09/25 10:34 Months Nurse Filling Out Transfusion DSCHRIBER 05/09/25 10:34 & Questions: Date: 05/09/25 05/09/25 10:34 Time: 10:36 05/09/25 10:34 Patient unable to answer at this time (ie. confused, unrespo /Reproduction History /Reproductive History - medical equipment repairer: /Reproductive Hx- medical equipment repairer Hx Now No 05/09/25 10:34 Gestational Age (in weeks): EDC: Hx Hx Para Hx Section SAB No 05/09/25 10:34 PFS Medical History (Updated 05/09/25 @ 10:44 by Gladys Gutierrez) Bladder disease Restless legs Migraine headache Dietary restriction History of IBS Gastric reflux Non-smoker Leg cramps History of edema History of Holter monitoring Wears glasses Post-menopausal Diabetes High cholesterol CPAP (continuous positive airway pressure) dependence Hypertension History of ingrown nail Home Medications Medication Instructions Recorded Last Taken Type Lactobacillus acidophilus 10 10,000 mmu cells PO DAILY 08/13/21 Unknown History billion cell capsule (Probiotic) aspirin 81 mg capsule 81 mg PO DAILY 08/13/2104/17 History atenolol 25 mg tablet 25 mg PO BID 08/13/21 History 25 mg biotin 500 mcg capsule 1 mg PO DAILY 08/13/21 Unkno wn History cholecalciferol (vitamin D3) 25 25 mcg PO DAILY Unknown History mcg (1,000 unit) chewable tablet (Vitamin D3) hydrochlorothiazide 50 mg tablet 50 mg PO DAILY Unknown History metformin 500 mg tablet,extended 1,000 mg PO DAILY Unknown History release 24 hr nortriptyline 10 mg capsule 20 mg PO QHS 08/13/21 Unkn own History rosuvastatin 5 mg tablet 5 mg PO QHS 08/13/21 Unknown History zinc 50 mg tablet 50 mg PO DAILY 08/13/21 Unkn own History Allergy/AdvReac Type Severity Reaction Status Date / Time amoxicillin (From Augmentin) Allergy Rash Verified 05/09/25 10:30 clavulanic acid (From Allergy Rash Verified 05/09/25 10:30 Augmentin) ezetimibe (From Zetia) Allergy Other Verified 05/09/25 10:30 lisinopril Allergy Other Verified 05/09/25 10:30 Penicillins Allergy Hives Verified 05/09/25 10:30 pravastatin Allergy Other Verified 05/09/25 10:30 red yeast rice Allergy Other Verified 05/09/25 10:30 simvastatin (From Zocor) Allergy Other Verified 05/09/25 10:30 Surgical History (Updated 05/09/25 @ 10:44 by Gladys Gutierrez) Hx of right cataract extraction Hx of left cataract extraction Hx of vein stripping Hx of colonoscopy History of carpal tunnel release of both wrists Hx of hysterectomy Hx laparoscopic cholecystectomy Hx of arthroscopic knee surgery Hx of lumpectomy Hx of dilation and curettage Social History Smoking Status: Never smoker Audit: Pertinent Findings Pertinent Findings EKG Perinent findings: 05/07/2025. Sinus rhythm with marked sinus arrhythmia Additional pertinent findings: 04/25/2025. Coronary calcium report-patient's calcium score is for 75%. This is worse than average score for most of this group. Recommendation Anesthesia Recommendation Anesthesia recommendation: OPTIMIZED for anesthesia
[2025-05-12] VITALS (7 sets, daily range): BP systolic 130–138; BP diastolic 69–75; PULSE 58–78; RESP 16–18; TEMP 36.2–37.1; O2SAT 95–99; BMI 30.4
--- NOTE | 2025-05-12 08:59 | PCM.HP.STD ---
HPI - General General Date of Admission: 05/12/25 Date of Service: 05/12/25 HPI Narrative MICKEY POON, is a 79 F who presents [Chief Complaint: dysphagia Details: ER 05/07/2025 Patient is a 79-year-old female presenting to the emergency department for a burning sensation in her chest after eating. Patient was seen and examined. Vitals are stable. Patient resting bed comfortably no acute distress. She is tolerating her secretions. Denies any shortness of breath. Has been able to drink since. She states it does not feel like there is anything stuck at this time. Given the patient's complaints of midsternal pain we will obtain a ACS workup, although patient does have a reason for the chest pain with stirfry and feeling a globus sensation in her chest. Symptoms are resolved now. she has no abdominal pain or continued vomiting. I do not think she needs a CT of her abdomen at this time. Given the patient has been having symptoms on and off for the past few months it sounds to be related to possible achalasia or other stricture type esophageal disease. Will speak with Dr. Du after ACS workup is back for follow up outpatient. EKG shows sinus rhythm with a sinus arrhythmia. No ischemic changes noted. CBC with no leukocytosis and a normal hemoglobin. BMP with no significant normalities. Initial troponin 11, slightly up trended to 16. Patient was able to tolerate a glass of water here without having to spit anything back up. I did speak with Dr. Du, to have the patient followed closely outpatient for EGD and he is agreeable. I reiterated this to patient that she should call tomorrow morning to follow-up with soon as possible. If she develops any symptoms at home with feeling a globus sensation in her chest, difficulty tolerating secretions, poor p.o. she needs return to the emergency department immediately. Given the patient's slight uptrending in troponins I did speak with cardiology, Dr. Doran, and explained that I do not think this is ACS related given the patient was eating stirfry and developed the sensation. He is in agreement, agrees the EKG is unremarkable for ACS and agrees with not obtaining a third troponin at this time. Patient stable for discharge. Patient discharged from the Emergency Department. I do not feel that the patient's evaluation reveals any acute reason for admission at this time. I instructed them to either follow-up with their primary care physician or promptly return to the Emergency Department for reevaluation should symptoms worsen or new symptoms develop. I explained what symptoms would indicate the need to return to the emergency department. Shared decision making was used. The patient voiced understanding of the treatment plan and is agreeable with it. 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 She reports these symptoms occurring intermittently over the past few months. It began without a clear inciting event and occurs primarily when eating. The patient describes intense pain and a sensation of food being stuck in the esophagus, which is temporarily relieved by stopping eating and taking deep breaths. The discomfort usually resolves after some time, allowing her to continue eating. There have been episodes where she had to regurgitate food, noting that the food did not reach the stomach. During a recent episode while eating stir mishra, she experienced significant discomfort and expects the symptoms of food retention in the esophagus, which led to regurgitation of undigested food. She has tried symptomatic relief measures including stopping the meal, deep breathing, and the use of antacids. There was no history of pill ingestion or known event linked to the onset of symptoms. The patient has experienced increased use of [id number] medications such as Pepto-Bismol and Tums to manage what she presumes might be acid-related symptoms. She denies any history of heart disease, lung disease, or previous episodes of similar symptoms occurring earlier in her life. She had a recent emergency room visit where the symptoms were addressed, but she found limited relief following the visit. [facility] Medical History Bladder disease Restless legs Migraine headache Dietary restriction History of IBS Gastric reflux Non-smoker Leg cramps History of edema History of Holter monitoring Wears glasses Post-menopausal Diabetes High cholesterol CPAP (continuous positive airway pressure) dependence Hypertension History of ingrown nail Home Medications Medication Instructions Recorded Last Taken Type Lactobacillus acidophilus 10 10,000 mmu cells PO DAILY 08/13/21 05/08/25 History billion cell capsule (Probiotic) aspirin 81 mg capsule 81 mg PO DAILY 08/13/21 05/08/25 History atenolol 25 mg tablet 25 mg PO BID 08/13/21 05/12/25 History biotin 500 mcg capsule 1 mg PO DAILY 08/13/21 05/08/25 History cholecalciferol (vitamin D3) 25 25 mcg PO DAILY 08/13/21 05/08/25 History mcg (1,000 unit) chewable tablet (Vitamin D3) hydrochlorothiazide 50 mg tablet 50 mg PO DAILY 08/13/21 05/11/25 History metformin 500 mg tablet,extended 1,000 mg PO DAILY 08/13/21 05/11/25 History release 24 hr nortriptyline 10 mg capsule 20 mg PO QHS 08/13/21 05/11/25 History rosuvastatin 5 mg tablet 5 mg PO QHS 08/13/21 05/11/25 History zinc 50 mg tablet 50 mg PO DAILY 08/13/21 05/08/25 History Allergy/AdvReac Type Severity Reaction Status Date / Time amoxicillin (From Augmentin) Allergy Rash Verified 05/12/25 08:50 clavulanic acid (From Allergy Rash Verified 05/12/25 08:50 Augmentin) ezetimibe (From Zetia) Allergy Other Verified 05/12/25 08:50 lisinopril Allergy Other Verified 05/12/25 08:50 Penicillins Allergy Hives Verified 05/12/25 08:50 pravastatin Allergy Other Verified 05/12/25 08:50 red yeast rice Allergy Other Verified 05/12/25 08:50 simvastatin (From Zocor) Allergy Other Verified 05/12/25 08:50 Surgical History Hx of right cataract extraction Hx of left cataract extraction Hx of vein stripping Hx of colonoscopy History of carpal tunnel release of both wrists Hx of hysterectomy Hx laparoscopic cholecystectomy Hx of arthroscopic knee surgery Hx of lumpectomy Hx of dilation and curettage Social History Smoking Status: Never smoker ROS Constitutional Constitutional: Denies fatigue, fever(s), poor appetite, weight gain or weight loss Gastrointestinal Gastrointestinal: Denies belching, bloating, change in bowel habits, change in stool character, chewing difficulty, coffee ground emesis, constipation, cramping, diarrhea, dyspepsia, dysphagia, early satiety, excessive flatus, fecal incontinence, heartburn, hematemesis, hematochezia, hemorrhoids, loose stools, melena, nausea, odynophagia, rectal bleeding, tenesmus, vomiting or weight changes Physical Exam Const alert, oriented x3, no apparent distress and healthy appearing General Appearance: cooperative GI normal to inspection, nondistended, normoactive bowel sounds, soft to palpation, non-tender and non-distended Percussion: normal to percussion Rectal Exam: deferred Assessment & Plan Assessment/Plan (1) Dysphagia: (2) Esophageal abnormality: (3) Chest pain: PLAN: Assessment and Plan Assessment and Plan (1) Dysphagia: Status: Acute Plan 79-year-old female with a history of gastroesophageal reflux disease presenting with dysphagia and regurgitation. The recent aggravation of symptoms, along with the need to regurgitate undigested food, raises concerns about potential esophageal stricture or significant GERD-related esophagitis. Considering her increased need for antacid medications, there is a consideration of inflammation of the esophagus, possibly due to acid exposure. The plan includes scheduling an upper endoscopy to further assess and diagnose any esophageal abnormalities directly contributing to her symptoms. She will start pantoprazole in the interim. Patient Instructions: Start pantoprazole once daily EGD as planned next week]
[2025-05-12] MEDS: Lactated Ringers 1,000 ML 15 ML IV (09:07)
--- NOTE | 2025-05-12 09:12 | PRE.ANES_ITS ---
ASA Classification* ASA Classification ASA Classification: 2 Assessment & Plan Anesthesia* Anesthesia Assessment Anesthesia Assessment: Discussed sedation and/or anesthesia options, risks, benefits, and alternatives with patient/parents/legal guardian/POA. Questions invited. The patient/parents/legal guardian/POA seems to understand and agrees to proceed with anesthesia plan. Reviewed the physical assessment, medical history, allergy history and patient home medications list prior to surgery/procedure/anesthetic and documented any changes. Performed airway and anesthesia risk assessments. Anesthesia Type Anesthesia Type: MAC History Source History Obtained from:: Patient and Chart Anesthesia Focused Assessment* Temperature: 97.1 F Pulse Rate: 78 Blood Pressure: 130/72 Respiratory Rate: 18 Pulse Ox: 97 Oxygen Delivery Method: Room Air Airway Assessment Mouth opens: 2 cm Mallampati Score: III Teeth Condition: Caps/Crowns (Patient has a crown. It is tight.) Neck Range of motion (ROM): Limited ROM (Somewhat Decreased) Labs Anesthesia Preop lab: CBC WBC, (4.4-11.0) 6.9 K/mm3 05/07/25, : RBC, (4.2-5.4) 4.34 M/mm3 05/07/25, 13: Hgb, (12.0-15.0) 13.1 g/dL 05/07/25, : Hct, (37-47) 38.3 % 05/07/25, 13: Plt Count, (150-450) 194 K/mm3 05/07/25, 13:26 CHEMISTRY Potassium, (3.3-5.1) 3.7 mmol/L 05/07/25, : Sodium, (133-145) 135 mmol/L 05/07/25, 13: BUN, (4-19) 13 mg/dL 05/07/25, : Creatinine, (0.70-1.20) 0.82 mg/dL 05/07/25, : Glucose, (70-99) 150 mg/dL H 05/07/25, : POC Glucose, (70-110) 167 mg/dL H 08/16/21, 07:46 COAG Pre-Assessment Diagnosis/Proposed Procedure Planned Operative Procedure(s): EGD Anesthesia History 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 When Was Last Pacemaker Check QUESTION #4 FULL TEXT: You/Your Family Experience fever (hyperthermia) with Anesthesia Last Oral Intake Last Oral intake: Last Oral Intake NPO since 06:30 05/12/25 08:53 Meds taken in AM with sips of Yes 05/12/25 08:53 water? Meds patient instructed to atenolol 05/12/25 08:53 take am of surgery Any additional information?: Yes Meds taken in AM with sips of water?: Yes PONV PONV - logistics/shipper: PONV - logistics/shipper Female Yes 05/09/25 10:34 HX of Motion Sickness No 05/09/25 10:34 HX of N/V After Surgery No 05/09/25 10:34 Non-Smoker Yes 05/09/25 10:34 Duration of Surgery greater No 05/09/25 10:34 than 60 minutes Number of Risk Factors 2 05/09/25 10:34 PONV Score Moderate Risk 05/09/25 10:34 Height & Weight Height & Weight: Anesthesia: Height & Weight Height 5 ft 7 in 05/12/25 08:53 Weight: 88 kg 05/12/25 08:53 Body Mass Index (BMI) 30.4 05/12/25 08:53 Respiratory Assessment Respiratory Assessment - logistics/shipper: Respiratory Tract Infection Hx - logistics/shipper Hx Respiratory Tract Infection No 05/09/25 10:34 STOP Sleep Apnea STOP Sleep Apnea - logistics/shipper: STOP Sleep Apnea - logistics/shipper Hx Hypertension Yes: CONTROLLED WITH MED 05/09/25 10:34 Hx Sleep Apnea Yes 05/09/25 10:34 CPAP Yes 05/09/25 10:34 BIPAP No 05/09/25 10:34 Do you snore loudly (louder than talking or can be heard Do you often feel tired/ fatigued/ sleepy during daytime? Has anyone observed you stop breathing during sleep? STOP Results Positive 05/09/25 10:34 QUESTION #5 FULL TEXT : Do you snore loudly (louder than talking or can be heard through closed doors)? 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 Specify any problems Hx of Preganancy in last 3 No 05/09/25 10:34 Months Nurse Filling Out Transfusion DSCHRIBER 05/09/25 10:34 & Questions: Date: 05/09/25 05/09/25 10:34 Time: 10:36 05/09/25 10:34 Patient unable to answer at this time (ie. confused, unrespo /Reproduction History /Reproductive History - logistics/shipper: /Reproductive Hx- logistics/shipper Hx Now No 05/09/25 10:34 Gestational Age (in weeks): EDC: Hx Hx Para Hx Section SAB No 05/09/25 10:34 Active Medications Active Medications: Current Medications Generic Name Dose Route Start Last Admin Trade Name Freq PRN Reason Stop Dose Admin Lactated Ringer's 1,000 mls @ 15 mls/hr 05/12/25 08:30 05/12/25 09:07 IV 15 mls/hr .Q48H CODY Administration PFSH Medical History Bladder disease Restless legs Migraine headache Dietary restriction History of IBS Gastric reflux Non-smoker Leg cramps History of edema History of Holter monitoring Wears glasses Post-menopausal Diabetes High cholesterol CPAP (continuous positive airway pressure) dependence Hypertension History of ingrown nail Home Medications Medication Instructions Recorded Last Taken Type Lactobacillus acidophilus 10 10,000 mmu cells PO DAILY 08/13/21 05/08/25 History billion cell capsule (Probiotic) aspirin 81 mg capsule 81 mg PO DAILY 08/13/2104/17 History atenolol 25 mg tablet 25 mg PO BID 08/13/21 History biotin 500 mcg capsule 1 mg PO DAILY 08/13/2105/08 History cholecalciferol (vitamin D3) 25 25 mcg PO DAILY 05/08/25 History mcg (1,000 unit) chewable tablet (Vitamin D3) hydrochlorothiazide 50 mg tablet 50 mg PO DAILY 05/11/25 History metformin 500 mg tablet,extended 1,000 mg PO DAILY 05/11/25 History release 24 hr nortriptyline 10 mg capsule 20 mg PO QHS 08/13/2104/17 History rosuvastatin 5 mg tablet 5 mg PO QHS 08/13/21 5 History zinc 50 mg tablet 50 mg PO DAILY 08/13/2104/17 History Allergy/AdvReac Type Severity Reaction Status Date / Time amoxicillin (From Augmentin) Allergy Rash Verified 05/12/25 08:50 clavulanic acid (From Allergy Rash Verified 05/12/25 08:50 Augmentin) ezetimibe (From Zetia) Allergy Other Verified 05/12/25 08:50 lisinopril Allergy Other Verified 05/12/25 08:50 Penicillins Allergy Hives Verified 05/12/25 08:50 pravastatin Allergy Other Verified 05/12/25 08:50 red yeast rice Allergy Other Verified 05/12/25 08:50 simvastatin (From Zocor) Allergy Other Verified 05/12/25 08:50 Surgical History Hx of right cataract extraction Hx of left cataract extraction Hx of vein stripping Hx of colonoscopy History of carpal tunnel release of both wrists Hx of hysterectomy Hx laparoscopic cholecystectomy Hx of arthroscopic knee surgery Hx of lumpectomy Hx of dilation and curettage Social History Smoking Status: Never smoker Review of Systems (Anesthesia) ROS Narrative System reviewed and no additional complaints, except as documented.
--- NOTE | 2025-05-12 09:30 | EGD_PTH ---
PATIENT: MICKEY POON LOC: EN U#:[id number] AGE/SX: 79/F ROOM: RE05/12/[address]: Dr. Niels Du DO : 1945 BED: DIS: 05/12/2025 SPEC #: [id number] RECD: 05/12/25 11:26 STATUS: RAVINDER REEsequiel #: [id number] ROSARIO: 05/12/25 09:[address]: Niels Du DEPT: SURGICAL PATHOLOGY RECD BY: Kashmir Jerry ENTERED: 05/12/25 12:13 SP TYPE: EGD BIOPSY BRIAN DR: Dr. Karen Shoemaker MD Tissues: A - Esophagus, NOS Procedures: Surgery Specimen Level IV HEADER OPERATION: EGD with biopsy and dilatation PRE-OP DIAGNOSIS: Dysphagia, esophageal abnormality, chest pain TISSUE SUBMITTED: A- Random esophagus biopsy MICROSCOPIC DIAGNOSIS A. Esophagus, random, biopsy: - Squamous mucosa with reactive changes. - 15 eosinophils per high power field. MICROSCOPIC DESCRIPTION Slides are reviewed. GROSS DESCRIPTION A. Received in fixative is one container labeled with the patient's name and designated "Random esophagus biopsy." The specimen consists of two irregular fragments of pinzon tissue that measure 0.3 and 0.5 cm. The specimen is totally submitted in one cassette. MT 05/12/2025 CPT:46087
--- NOTE | 2025-05-12 09:51 | OP.PROVAT_ITS ---
05/12/2025 Karen Shoemaker [address] [place] [address] Re : Upper GI endoscopy procedure for Leticia Adler Dear Dr. Shoemaker This procedure was performed on Monday, May 12, 2025. My impressions and recommendations are as follows: Impressions : - Esophageal mucosal changes suggestive of eosinophilic esophagitis. Dilated. - Abnormal esophageal motility. - No gross lesions in the entire stomach. - No gross lesions in the entire examined duodenum. - Biopsies were taken with a cold forceps for evaluation of eosinophilic esophagitis. Recommendations : - Discharge patient to home. - Resume previous diet. - Continue present medications. - Pantoprazole 40 mg p.o. twice daily x 2 months - Consider esophageal manometry My findings are described in the full procedure note, which is enclosed. If I can be of further assistance, please feel free to contact me at . Sincerely, Niels Friend, 05/12/2025 9:50:50 AM This report has been signed electronically.
--- NOTE | 2025-05-12 09:51 | OP.EGD_ITS ---
Patient Name: Leticia Adler Procedure Date: 05/12/2025 9:05 AM Date of : 1945 Age: 79 Procedure: Upper GI endoscopy Indications: Dysphagia Providers: Niels Du DO Referring MD: Karen Shoemaker Medicines: Monitored Anesthesia Care Patient Profile: This is a 79 year old female. Refer to note in patient chart for documentation of history and physical. Patient has symptoms of acute dysphagia and dysphagia with solids. Complications: No immediate complications. Procedure: Pre-Anesthesia Assessment: - Prior to the procedure, a History and Physical was performed, and patient medications and allergies were reviewed. The patient is competent. The risks and benefits of the procedure and the sedation options and risks were discussed with the patient. All questions were answered and informed consent was obtained. Patient identification and proposed procedure were verified by the physician in the pre-procedure area. Mental Status Examination: alert and oriented. Airway Examination: normal oropharyngeal airway and neck mobility. Respiratory Examination: clear to auscultation. CV Examination: normal. Prophylactic Antibiotics: The patient does not require prophylactic antibiotics. Prior Anticoagulants: The patient has taken no anticoagulant or antiplatelet agents except for NSAID medication. ASA Grade Assessment: II - A patient with mild systemic disease. After reviewing the risks and benefits, the patient was deemed in satisfactory condition to undergo the procedure. The anesthesia plan was to use monitored anesthesia care (MAC). Immediately prior to administration of medications, the patient was re-assessed for adequacy to receive sedatives. The heart rate, respiratory rate, oxygen saturations, blood pressure, adequacy of pulmonary ventilation, and response to care were monitored throughout the procedure. The physical status of the patient was re-assessed after the procedure. After obtaining informed consent, the endoscope was passed under direct vision. Throughout the procedure, the patient's blood pressure, pulse, and oxygen saturations were monitored continuously. The Endoscope was introduced through the mouth, and advanced to the second part of duodenum. The upper GI endoscopy was accomplished without difficulty. The patient tolerated the procedure well. Scope In: 9:39:15 AM Scope Out: 9:44:24 AM Total Procedure Duration Time 0 hours 5 minutes 9 seconds Findings: Mucosal changes including small-caliber esophagus, congestion (edema) and longitudinal markings were found in the middle third of the esophagus and in the lower third of the esophagus. Biopsies were obtained from the proximal and distal esophagus with cold forceps for histology of suspected eosinophilic esophagitis. Verification of patient identification for the specimen was done. A guidewire was placed and the scope was withdrawn. Dilation was performed with a Savary dilator with no resistance at 60 Fr. The dilation site was examined and showed mild mucosal disruption. Estimated blood loss was minimal. Abnormal motility was noted in the esophagus. The cricopharyngeus was abnormal. There is a decrease in motility of the esophageal body. The distal esophagus/lower esophageal sphincter is spastic, but gives up passage to the endoscope. No gross lesions were noted in the entire examined stomach. No gross lesions were noted in the entire examined duodenum. Impression: - Esophageal mucosal changes suggestive of eosinophilic esophagitis. Dilated. - Abnormal esophageal motility. - No gross lesions in the entire stomach. - No gross lesions in the entire examined duodenum. - Biopsies were taken with a cold forceps for evaluation of eosinophilic esophagitis. Recommendation: - Discharge patient to home. - Resume previous diet. - Continue present medications. - Pantoprazole 40 mg p.o. twice daily x 2 months - Consider esophageal manometry Procedure Code(s): --- Professional --- 40881, Esophagogastroduodenoscopy, flexible, transoral; with insertion of guide wire followed by passage of dilator(s) through esophagus over guide wire 06870, 59,51, Esophagogastroduodenoscopy, flexible, transoral; with biopsy, single or multiple CPT copyright 2021 [employer]. All rights reserved. The codes documented in this report are preliminary and upon sack repairer review may be revised to meet current compliance requirements. Niels Du DO 05/12/2025 9:50:50 AM This report has been signed electronically. Number of Addenda: 0 Note Initiated On: 05/12/2025 9:05 AM
--- NOTE | 2025-05-12 09:56 | PCM.POST.ANE ---
Anesthesia: Postop Eval I Current Vital Signs Temperature: 97.7 F Pulse Rate: 62 Blood Pressure: 134/75 Respiratory Rate: 16 Pulse Ox: 98 Oxygen Delivery Method: Room Air Assessment Airway patent: Yes Spontaneous unlabored respirations: Yes Mental status: Awake and Calm nausea: No Vomiting: No Anesthesia Complication: No Fluid Hydration Crystalloid volume administer (ml): 400 Total IV fluid infused: 400 Progress Note Anesthesia document: Postop Eval 1 completed: Yes
--- NOTE | 2025-05-12 12:15 | PCM.POSTANE2 ---
Anesthesia Postop Eval I Sum Postop Eval Completion status Anesthesia document: Postop Eval 1 completed: Yes Anesthesia Postop Eval I Summary Anesthesia Postop Eval I Summary: Anesthesia Postop Eval I: Assessment Summary Airway patent Yes 05/12/25 09:57 [email or web address] Spontaneous unlabored Yes 05/12/25 09:57 [email or web address] respirations Mental status Awake,Calm 05/12/25 09:57 [email or web address] nausea No 05/12/25 09:57 [email or web address] Vomiting No 05/12/25 09:57 [email or web address] Anesthesia Postop Eval I: Fluid Summary Crystalloid volume administer 400 05/12/25 09:57 [email or web address] (ml) Colloids volume administered ( ml) Blood Product volume administered (ml) Total IV fluid infused 400 05/12/25 09:57 [email or web address] Anesthesia Postop Eval I: Summary Notes Anesthesia Complication No 05/12/25 09:57 [email or web address] Anesthesia Complication Comment: Post-operative progress note Anesthesia: Postop Eval II Evaluation Mental status: Awake and Calm Pain Level: 0 nausea: No Vomiting: No Complications Anesthesia Complication: No
== END 2025-05-12 10:37 | disposition home or self-care (01) ==
LOC: EN 08:18 → AC 08:20
PROVIDERS: PCP Internal Medicine; Referring Provider Internal Medicine; Visit Provider Internal Medicine Gastroenterology
PROC: 0DJ08ZZ Inspection of Upper Intestinal Tract, Via Natural or Artificial Opening Endoscopic (ICD-10-PCS; CPT 43235; principal; 2025-05-12 09:25)
DX: R13.10 Dysphagia, unspecified (principal); E11.9 Type 2 diabetes mellitus without complications; E78.00 Pure hypercholesterolemia, unspecified; Z90.710 Acquired absence of both cervix and uterus; Z79.899 Other long term (current) drug therapy; I10 Essential (primary) hypertension; Z79.82 Long term (current) use of aspirin; Z79.84 Long term (current) use of oral hypoglycemic drugs; Z98.41 Cataract extraction status, right eye; Z98.42 Cataract extraction status, left eye; Z90.49 Acquired absence of other specified parts of digestive tract; R07.9 Chest pain, unspecified; K22.89 Other specified disease of esophagus
CPT/HCPCS: 43248; 43239; 82962; 88305; C1769; J2405